=== PATIENT | female | born 1995 | race African-American/Black ===

== ENCOUNTER 2021-01-13 08:02 | Emergency (ER) | payer MEDICAID ==
[~2021-01-13] VITALS: Ht 160 cm; Wt 64.8 kg
[2021-01-13 08:15] VITALS: BP 112/78
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
--- NOTE | 2021-01-13 09:10 | NUR ---
report to channing reno.
--- NOTE | 2021-01-13 09:42 | NUR ---
Patient/Caregiver given discharge instructions and they have confirmed that they understand the instructions. Patient ambulatory with steady gait.
== END 2021-01-13 09:43 | disposition home or self-care (01) ==
LOC: ED 09:10
DX: S52.092A Other fracture of upper end of left ulna, initial encounter for closed fracture (principal); W22.8XXA Striking against or struck by other objects, initial encounter; Y93.89 Activity, other specified; Y92.488 Other paved roadways as the place of occurrence of the external cause; Y99.8 Other external cause status
CPT/HCPCS: 29105; 99283

== ENCOUNTER 2021-01-21 09:00 | Emergency (ER) | payer MEDICAID ==
[~2021-01-21] VITALS: Ht 160 cm; Wt 66.6 kg
[2021-01-21 09:04] VITALS: BP 135/84
[2021-01-21] MEDS ORDERED: HYDROmorphone 1 MG/ML, 1ML INJ ONE ×2 (09:26→11:25)
[2021-01-21] MEDS ORDERED: HYDROmorphone 1 MG/ML, 1ML INJ IM ONE (09:30)
--- NOTE | 2021-01-21 10:31 | NUR ---
Pt educated about tylenol and ibuprofen for pain control.
== END 2021-01-21 10:32 | disposition home or self-care (01) ==
LOC: ED 09:26
DX: M25.522 Pain in left elbow (principal)
CPT/HCPCS: 96372; 99283; J1170

== ENCOUNTER 2021-03-22 10:11 | Emergency (ER) | payer MEDICAID ==
[~2021-03-22] VITALS: Ht 157.5 cm; Wt 65.0 kg
--- NOTE | 2021-03-22 11:43 | NUR ---
TO [facility] FROM [facility]
--- NOTE | 2021-03-22 12:11 | NUR ---
PT C/O ABD PAIN, PERIUMBILICAL, AND N/V THAT STARTED THIS AM. PAIN 10/. PT DENIES CP OR DIARRHEA.
[2021-03-22 12:51] LABS: BASOPHILS % (AUTO) 1 % (0-1); EOSINOPHILS % (AUTO) 1 % (1-7); LYMPHOCYTES % (AUTO) 30 % (22-44); MEAN CORPUSCULAR HEMOGLOBIN 29.9 pg (27.0-34.8); MEAN CORPUSCULAR HGB CONC 33.5 g/dL (32.4-35.8); MEAN PLATELET VOLUME 8.9 fL (7.4-10.4); MONOCYTES % (AUTO) 7 % (2-9); NEUTROPHILS % (AUTO) 62 % (42-75); PLATELET COUNT 217 x10^3/uL (130-400); RED BLOOD COUNT 4.71 x10^6/uL (3.82-5.3); RED CELL DISTRIBUTION WIDTH 13.2 % (9.6-15.2)
[2021-03-22 12:53] LABS: MICROSCOPIC INDICATED
[2021-03-22 12:54] LABS: MD NO
[2021-03-22] MEDS ORDERED: DICYCLOMINE 10 MG/ML, 2ML ONE (13:00)
[2021-03-22] MEDS ORDERED: ONDANSETRON ODT 4 MG PO ONE (13:00)
[2021-03-22] MEDS ORDERED: DICYCLOMINE 10 MG/ML, 2ML IM ONE (13:00)
[2021-03-22] MEDS ORDERED: ONDANSETRON ODT 4 MG ONE (13:00)
[2021-03-22 13:05] LABS: ALANINE AMINOTRANSFERASE 17 U/L (12-78); ALBUMIN 3.7 g/dL (3.4-5.0); ANION GAP 6 mmol/L (5-15); CALCIUM 8.7 mg/dL (8.5-10.1); CHLORIDE 106 mmol/L (98-107)
[2021-03-22 13:10] LABS: ALKALINE PHOSPHATASE 58 U/L (45-117); BILIRUBIN,TOTAL 0.4 mg/dL (0.2-1.0)
--- NOTE | 2021-03-22 14:02 | NUR ---
PT GIVEN WATER FOR PO [place]
--- NOTE | 2021-03-22 14:29 | NUR ---
PT TOLERATING WATER PO.
[2021-03-22 14:48] VITALS: BP 117/79
== END 2021-03-22 15:11 | disposition home or self-care (01) ==
LOC: ED 12:26
DX: K52.9 Noninfective gastroenteritis and colitis, unspecified (principal); R10.33 Periumbilical pain; R11.2 Nausea with vomiting, unspecified
CPT/HCPCS: 36415; 80053; 81001; 83690; 84703; 85025; 96372; 99283; J0500; Q0162